=== PATIENT | female | born 1960 | race African-American/Black ===

== ENCOUNTER 2025-05-06 16:46 | Emergency (ER) | payer MEDICAID, OTHER ==
[~2025-05-06] VITALS: Ht 160 cm; Wt 81.8 kg
[2025-05-06 16:47] VITALS: BP 134/69; PULSE 101; RESP 16; TEMP 98; O2SAT 98
--- NOTE | 2025-05-06 18:51 | DVH ---
CLINICAL HISTORY: sob, cough TECHNIQUE: Chest 2 views of the chest were obtained. COMPARISON: None FINDINGS: The heart size and pulmonary vasculature are normal. The lungs are clear. No pleural effusion is present. IMPRESSION: NO ACUTE CARDIOPULMONARY PROCESS.
[2025-05-06] MEDS ORDERED: METH4PAK PO (20:01)
[2025-05-06] MEDS ORDERED: PROM1SOL4 PO (20:01)
[2025-05-06] MEDS ORDERED: AZIT-43 PO (20:01)
--- NOTE | 2025-05-06 20:01 | ED.PDOC ---
SOB-HPI HPI Comments 64-year-old female presents to the ED chief complaint cold-like symptoms x2 weeks. Patient reports cough worse at night with difficulty sleeping. Bilateral lower posterior rib pain. Sore throat, chills and subjective fevers. Denies difficulty breathing, shortness of breath, chest pain, nausea, vomiting or diarrhea. Chief Complaint: Flu like Time Seen by MD: 18:05 Reviewed notes: Nurses Notes, Medications, Allergies Information Source: Patient Mode of Arrival: Ambulatory Past Medical History PAST MEDICAL HISTORY: Denies Surgical History: Denies all surgeries [employer] History: No Pertinent [employer] History Family History Family History: Reviewed,noncontributory to illness Social History Smoker: Non-Smoker Alcohol: Denies ETOH Use Drugs: Denies Drug Use All Other Systems: Reviewed and Negative (See HPI) Physical Exam General Appearance: No Apparent Distress, Normal HEENT: Normal ENT Inspection, Pharynx Normal, TMs Normal Neck: Full Range of Motion, Non-Tender Respiratory: Chest Non-Tender, No Accessory Muscle Use, No Respiratory Distress, Rhonchi Cardiovascular: No Edema, No JVD, No Murmur, No Gallop, Normal Peripheral Pulses, Regular Rate/Rhythm Breast Exam: Deferred Gastrointestinal: No Organomegaly, Non Tender, No Pulsatile Mass, Normal Bowel Sounds, Soft Genitalia: Deferred Pelvic: Deferred Rectal: Deferred Extremities: No calf tenderness, Normal capillary refill, Normal inspection, Normal range of motion, Non-tender, No pedal edema Musculoskeletal : Apperance: Normal Neurologic: Alert, No Motor Deficits, Normal Affect, Normal Mood, No Sensory Deficits Cerebellar Function: Normal Reflexes: NOT DONE Skin: Dry, Normal Color, Warm Lymphatic: No Adenopathy Was a procedure done? Was a procedure done?: No Differential Dx Differential Diagnosis: Asthma, Bronchitis, Pneumonia, Pneumothorax, Pulmonary Embolism, Respiratory Distress, URI X-Ray, Labs, Meds, VS Vital Signs Date Time Temp Pulse Resp B/P (MAP) Pulse Ox O2 Delivery O2 Flow Rate FiO2 05/06/25 16:47 98.0 101 16 134/69 98 98.0 05/06/25 16:47 Room Air X-Ray, Labs, Meds, VS Comment Chest x-ray shows no acute cardiopulmonary finding Likely infected. Script trial of antibiotics and steroid. Advised to take medication as prescribed side effects discussed. Advised to rest increase p.o. fluids with electrolytes.. Follow up with your PCP in three days if no improvement. ER return precautions given patient indicates understanding and agrees with discharge plan of care. Images Reviewed?: Images reviewed and evaluated by me Time of 1ST Reevaluation: 18:05 Reevaluation 1ST: Unchanged Time of 2ND Reevaluation: 20:12 Reevaluation 2ND: Improved Patient Education/Counseling: Diagnosis, Treatment, Need For Follow Up Family Education/Counseling: No Family Present SEPSIS Sepsis Screen Date sepsis recognized/suspect: May 06, 2025 Time Sepsis recognized/suspect: 1648 Recent Procedure: No On Antibiotic Therapy: Yes Respiratory Rate >20: No Heart Rate >90: Yes Temp<36 C (96.8 F) or >38.3 C: No SBP <90 or MAP <65 mmHG: No New Acute Mental Status Change: No Is the patient on CPAP, BIPAP,: No Physician Orders Chest Two Views Routine (05/06/25 18:06) Promethazine-Dm (Phenergan-Dm) (05/06/25 20:15) Vital Signs Date Time Temp Pulse Resp B/P (MAP) Pulse Ox O2 Delivery O2 Flow Rate FiO2 05/06/25 16:47 98.0 101 16 134/69 98 98.0 05/06/25 16:47 Room Air Departure 1 Departure Time of Disposition: 20:15 Impression: Primary Impression: Bronchitis Disposition: HOME / SELF CARE / HOMELESS Condition: Stable e-Prescriptions Promethazine-Dm (Promethazine Dm 6.25-15 mg/5Ml) 1 Leanna Leanna 5 ML PO TID PRN for 5 Days, #75 ML Prov: TREVA LEDESMA 05/06/25 Azithromycin (Azithromycin) 250 Mg Tab 250 MG PO DAILY MDD 500 for 5 Days, #6 TAB 0 Refills 2 TABLETS ORALLY ON DAY ONE, THEN 1 TABLET ORALLY DAILY FOR 4 DAYS Prov: TREVA LEDESMA 05/06/25 Methylprednisolone (Medrol Dosepak) 4 Mg Kaiden 4 MG PO UD for 6 Days, #21 TAB UAD Prov: TREVA LEDESMA 05/06/25 Discharged With: Self Critical Care Note Critical Care Time?: No Stability Stability form required: No Heart Score Heart Score: Heart Score Response (Comments) Value History N/A 0 EKG N/A 0 Age 45-64 1 Risk Factors N/A 0 Troponin N/A 0 Total 1 TREVA LEDESMA [facility] May 06, 2025 20:01
[2025-05-06] MEDS: PROMETHAZINE-DM 5 ML ORAL SYRUP PO ONE (20:16)
== END 2025-05-06 20:22 | disposition home or self-care (01) ==
LOC: ER 16:46
DX: J40 Bronchitis, not specified as acute or chronic (principal)
CPT/HCPCS: 71046